=== PATIENT | male | born 1995 | race Caucasian/White ===

== ENCOUNTER 2021-02-04 19:19 | Emergency (ER) | payer OTHER ==
[~2021-02-04] VITALS: Ht 170.2 cm; Wt 72.6 kg
[2021-02-04 19:46] LABS: ABSOLUTE NEUTROPHILS 6.4 thou/uL (1.4-8.2); BASOPHILS 0.6 % (0.0-2.0); HEMATOCRIT 46.4 % (42.0-52.0); LYMPHOCYTES 14.6 % (24.0-44.0); MCH 28.8 pg (26.0-34.0); MCHC 34.5 g/dL (28.0-37.0); MCV 83.6 fL (80.0-100.0); PLATELET COUNT 320 thou/uL (150-400); POLYS 77.8 % (36.0-66.0); RBC 5.55 mil/uL (4.50-6.00); RDW 13.4 % (10.5-14.5); WBC 8.2 thou/uL (4.0-11.0)
[2021-02-04 19:49] LABS: CALCIUM 9.4 mg/dL (8.5-10.1); CREATININE 1.4 mg/dL (0.7-1.3); POTASSIUM 3.5 mmol/L (3.5-5.1)
[2021-02-04 20:11] LABS: AMP/METHAMP Negative (Negative); BARBITURATES Negative (Negative); BENZODIAZEPINES Negative (Negative); COCAINE Negative (Negative); METHADONE Negative (Negative); OPIATES Negative (Negative); PCP Negative (Negative)
[2021-02-04 20:58] VITALS: BP 150/90
== END 2021-02-04 20:58 | disposition home or self-care (01) ==
LOC: ER 19:19
PROVIDERS: Nurse Practitioner
DX: F19.90 Other psychoactive substance use, unspecified, uncomplicated (principal)